=== PATIENT | male | born 1990 | race Caucasian/White ===

== ENCOUNTER → 2017-02-05 | Outpatient (REF) | payer BC ==
[2017-02-05 11:07] LABS: PROGRESSIVE MOTILITY (a) 27 % (>=32); SPERM ABNORMAL FORMS WBC'S NOTED
[2017-02-05 11:08] LABS: % NORMAL FORMS 5 % (>=4); IMMOTILITY 59 %; NON PROGRESSIVE MOTILITY (c) 14 %; SPERM# 193.5 M/Ejac (>=39); TOTAL FUNCTIONAL 6.4 M/Ejac.; TOTAL MOTILITY 41 % (>=40); TOTAL PROGRESSIVE SPERM 51.7 M/Ejac.
== END ==
LOC: M LAB REF 11:01
PROVIDERS: ATTEND Obstetrics & Gynecology
DX: Z31.41 Encounter for fertility testing (principal)

== ENCOUNTER → 2017-03-17 | Outpatient (REF) | payer BC ==
[2017-03-17 15:25] LABS: SEMEN APPEARANCE OPAQUE (OPAQUE); SEMEN VISCOSITY LIQUID (LIQUID); SEMEN pH 8.5 (7.0-8.0); SPERM CONCENTRATION 32.5 M/ml (>=15.0); WBC CONCENTRATION >1 M/ml (<=1 M/ml)
[2017-03-17 15:26] LABS: % NORMAL FORMS 12 % (>=4); IMMOTILITY 33 %; NON PROGRESSIVE MOTILITY (c) 16 %; SPERM# 130 M/Ejac (>=39); TOTAL FUNCTIONAL 17.4 M/Ejac.; TOTAL PROGRESSIVE SPERM 65.7 M/Ejac.
== END ==
LOC: M LAB REF 15:20
DX: N46.9 Male infertility, unspecified (principal)
CPT/HCPCS: 89320

== ENCOUNTER → 2018-04-09 | Outpatient (CLI) | payer BC | LOC: M SMT 10:48 | PROVIDERS: ATTEND Obstetrics & Gynecology Reproductive Endocrinology | DX: N46.9 Male infertility, unspecified (principal) ==